=== PATIENT | male | born 1955 | race Caucasian/White ===

== ENCOUNTER → 2020-10-06 09:02 | Outpatient (BNVA) | payer MEDICARE, MEDICAID, SELFPAY | PROVIDERS: PCP Internal Medicine Hematology & Oncology; Visit Provider Orthopaedic Surgery | DX: M75.101 Unspecified rotator cuff tear or rupture of right shoulder, not specified as traumatic (principal); M12.811 Other specific arthropathies, not elsewhere classified, right shoulder | CPT/HCPCS: 20610; 99202; J1040 ==

== ENCOUNTER 2020-11-22 09:11 | Day surgery (SDC) | payer MEDICARE, MEDICAID, SELFPAY ==
[2020-11-16 13:14] VITALS: BMI 21.2
--- NOTE | 2020-11-19 13:13 | MHC.SHP ---
Pre-Procedural Eval Section A The patient is an INPATIENT: No The History & Physical has been completed within 30 days and I have reviewed it.: Yes Section B Chief Complaint: Cataract Right Eye Allergies: Allergies Allergy/AdvReac Type Severity Reaction Status Date / Time No Known Allergies Allergy Verified 11/16/20 13:21 Plan Diagnosis/Plan: Unchanged I have reviewed the history and physical and performed a pertinent physical examination on my patient. No changes have occurred unless specified.
--- NOTE | 2020-11-22 11:03 | HO.ANESPROP2 ---
HPI - Anesthesia Eval Consult details Narrative: 64 yo male patient for Right cataract extraction and IOL insertion PMFSH Active Problems Active Problems: All Active Problems (Updated 11/16/20 @ 13:20 by Shante Hernandez) Rotator cuff tear arthropathy of right shoulder (Acute) Past Medical History Medical History COPD (chronic obstructive pulmonary disease) Hx of bipolar disorder Hypercholesteremia Hypertension Pre-diabetes Restless leg syndrome Vision impairment Family History Family history of problems with anesthesia: No Surgical History Surgical History H/O colonoscopy H/O rotator cuff surgery History of esophagogastroduodenoscopy (EGD) Hx of appendectomy Hx of eye surgery Hx of total knee replacement Previous back surgery History of Problems with Anesthesia: No Social History Social History (Updated 11/22/20 @ 11:10 by Libby Light) Smoking Status: Current every day smoker Cigarettes Per Day: 5 Years Smoked: 40 Smoked in Last 30 Days: Yes Use of substances other than those prescribed or required for medical reasons: No Have you been hit, kicked, punched, or otherwise hurt by someone within the past year? 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 Meds Allergies Allergy/AdvReac Type Severity Reaction Status Date / Time No Known Allergies Allergy Verified 11/16/20 13:21 Active Medications: Current Medications Generic Name Dose Route Start Last Admin Trade Name Freq PRN Reason Stop Dose Admin Cyclopentolate HCl 1 drop 11/22/20 11:00 Cyclopentolate 1 % Ophth Natasha 2 Ml Drpbtl EYE-RIGHT 11/22/20 11:11 Q5M VANDANA Sodium Chloride 500 mls @ 50 mls/hr 11/22/20 06:00 Ns IV 11/22/20 15:59 .Q10H VANDANA Lactated Ringer's 500 mls @ 50 mls/hr 11/22/20 07:15 Lr IV .Q10H VANDANA Ketorolac Tromethamine 1 drop 11/22/20 11:00 Ketorolac Tromethamine 0.5% Op 3 Ml Drops EYE-RIGHT 11/22/20 11:11 Q5M VANDANA Moxifloxacin HCl 1 drop 11/22/20 10:56 Moxifloxacin Hcl 0.5 % Oph Natasha 3 Ml Drpbtl EYE-RIGHT 11/22/20 10:57 POSTOP ONE Phenylephrine HCl 1 drop 11/22/20 11:00 Phenylephrine Hcl 2.5% Oph Natasha 2 Ml Bottle EYE-RIGHT 11/22/20 11:11 Q5M COUNTS INCLUDE 234 BEDS AT THE [facility] Povidone Iodine 1 appl 11/22/20 10:56 Povidone Iodine 5 % Ophth Soln 30 Ml Bottle EYE-RIGHT PREOP PRN Pre-Op Surgical Implant Prophy Tetracaine HCl 1 drop 11/22/20 10:56 Tetracaine Hcl/Pf 0.5% Oph Natasha 4 Ml Drops EYE-RIGHT 11/22/20 10:57 PREOP ONE Triamcinolone Acetonide 40 mg 11/22/20 10:56 Triamcinolone Acetonide 40 Mg/Ml Vial IM 11/22/20 10:57 POSTOP ONE Tropicamide 1 drop 11/22/20 11:00 Tropicamide 1 % Ophth Natasha 3 Ml Btl EYE-RIGHT 11/22/20 11:11 Q5M COUNTS INCLUDE 234 BEDS AT THE [facility] Home Medications Medication Instructions Recorded Confirmed Last Taken Type albuterol sulfate 4 mg tablet 8 mg PO BID 10/06/20 Unknown History atorvastatin 80 mg tablet 80 mg PO BEDTIME 10/06/20 11/16/20 Unknown History naproxen 500 mg tablet 500 mg PO BID 10/06/20 Unknown History quetiapine 50 mg tablet 50 mg PO DAILY 10/06/20 Unknown History albuterol sulfate 2 puff PO QID PRN 11/16/20 11/16/20 Unknown History fluticasone propion-salmeterol 2 inh INHALATION BID 11/16/20 11/16/20 Unknown History lisinopril 10 mg PO QAM 11/16/20 11/16/20 Unknown History omeprazole 20 mg PO BID 11/16/20 11/16/20 Unknown History quetiapine 100 mg PO BEDTIME 11/16/20 11/16/20 Unknown History quetiapine 400 mg PO BEDTIME 11/16/20 11/16/20 Unknown History ropinirole 0.5 mg PO BEDTIME 11/16/20 11/16/20 Unknown History tiotropium bromide [Spiriva with 1 cap INHALATION QAM 11/16/20 11/16/20 Unknown History HandiHaler] tizanidine 4 mg PO TID 11/16/20 11/16/20 Unknown History zolpidem 10 mg PO BEDTIME 11/16/20 11/16/20 Unknown History Exam Exam Date and Time: November 22, 2020 1103 Height,Weight and Vital Signs: Height 5 ft 8 in Weight 63.503 kg Vital Signs Temp Pulse Resp BP Pulse Ox 11/22/20 11:08 97.1 F 59 18 140/83 H 99 Airway Mallampati Class: II TM Dist: >3cm Neck ROM: Full Denture: Upper and Lower Heart: RRR Lungs: CTAB Assessment and Plan Assessment Anesthesia Assessment: Anesthesia Plan Discussed and Chart Reviewed Final Anesthetic Review NPO: Yes ASA Class: II Final Preanesthetic Review: No Changes in Pt Med Stat, Meds/Allgs Chart Reviewed, Consent Obtained/Reviewed and Anes Risks/Benef Reviewed Patient Risk: Low Procedure Risk: Low Assessment/Block/Sedation in SS: Assess/Block/Sedation-SS Anesthetic Plan Anesthetic Plan: MAC: Disposition: Standard PACU
[2020-11-22 11:08] VITALS: BP 140/83; PULSE 59; RESP 18; TEMP 36.2; O2SAT 99
[2020-11-22] MEDS: Tetracaine HCl/PF 0.5% Oph Sol 4 ML DROPS 1 DROP EYE-RIGHT (11:17)
[2020-11-22] MEDS: Tropicamide 1 % Ophth Sol 3 ML BTL 1 DROP EYE-RIGHT ×3 (11:18→11:26)
[2020-11-22] MEDS: Phenylephrine HCL 2.5% Oph SoL 2 ML BOTTLE 1 DROP EYE-RIGHT ×3 (11:20→11:28)
[2020-11-22] MEDS: Lactated Ringers 500 ML 50 ML IV (11:29)
--- NOTE | 2020-11-22 12:12 | HO.PNOPHT ---
Ophthalmology Procedure Procedure Date of Service: 11/22/20 Ophthalmology Viscoelastic: Guru Barrientost Dual Pack Pro Ophthalmology Lenses: TECPETTY [id number] (16) Procedure Notes: PREOPERATIVE DIAGNOSIS: Decreased visual acuity right eye secondary to cataract POSTOPERATIVE DIAGNOSIS: Same PROCEDURE: Right cataract extraction with intraocular lens insertion SURGEON: Thee Philip M.D. ANESTHESIA: Topical/MAC ESTIMATED BLOOD LOSS: None COMPLICATIONS: None After obtaining informed consent, the patient was brought to the operating room suite and placed in the supine position. After adequate sedation per anesthesia, topical drops of Tetracaine were given to the right eye. The eye was then prepped and draped in the usual sterile fashion. The operating room microscope was then positioned over the operative eye and a lid speculum placed. A paracentesis was created. Viscoelastic was then instilled into the anterior chamber. A three plane incision was then created temporally, utilizing a 2.85 mm keratome. Capsulotomy forceps were then utilized to create a circular tear capsulotomy. Hydrodissection and hydrodelineation were carried out until adequate mobilization of the nucleus occurred. Phacoemulsification was then utilized to remove the dense central nucleus followed by removal of the cortical material utilizing the automated aspiration irrigation unit. Viscoelastic was instilled into the posterior capsular bag followed by placement of a posterior chamber intraocular lens without difficulty. The residual Viscoelastic was then removed utilizing the automated IA machine. The wound was checked and found to be watertight. The patient tolerated the procedure well and the lid speculum was removed. Intracameral injection of Vigamox 0.1 mL followed by a subtenon injection of Kenalog-40 0.2 mL were administered. The patient will be seen in the a.m.
[2020-11-22 12:37] VITALS: BP 140/83; PULSE 64; RESP 13; TEMP 36.8; O2SAT 100
== END 2020-11-22 13:31 | disposition home or self-care (01) ==
PROVIDERS: PCP Internal Medicine; Visit Provider Ophthalmology
PROC: (CPT 66985; principal; 2020-11-22 12:00)
DX: H25.11 Age-related nuclear cataract, right eye (principal); H52.4 Presbyopia; J44.9 Chronic obstructive pulmonary disease, unspecified; Z79.51 Long term (current) use of inhaled steroids; Z79.899 Other long term (current) drug therapy; I10 Essential (primary) hypertension; F17.210 Nicotine dependence, cigarettes, uncomplicated; Z87.828 Personal history of other (healed) physical injury and trauma
CPT/HCPCS: 66984; J2250; J3010; J3300; V2632

== ENCOUNTER 2020-12-06 06:38 | Day surgery (SDC) | payer MEDICARE, MEDICAID, SELFPAY ==
[2020-11-16 13:31] VITALS: BMI 21.2
--- NOTE | 2020-12-01 16:29 | MHC.SHP ---
Pre-Procedural Eval Section A The patient is an INPATIENT: No The History & Physical has been completed within 30 days and I have reviewed it.: Yes Section B Chief Complaint: Cataract Left Eye Allergies: Allergies Allergy/AdvReac Type Severity Reaction Status Date / Time No Known Allergies Allergy Verified 11/16/20 13:21 Plan Diagnosis/Plan: Unchanged I have reviewed the history and physical and performed a pertinent physical examination on my patient. No changes have occurred unless specified.
--- NOTE | 2020-12-03 08:21 | P.CONAN_ITS ---
Documented by User: Chio Emily 12/03/20 08:24 HPI - Anesthesia Eval Consult details Narrative: 64yo M for Left Cataract Extraction IOL Insertion Right eye 11/22/20 Fent 50, Midaz 1 PMFSH Active Problems Active Problems: All Active Problems (Updated 11/16/20 @ 13:20 by Shante Hernandez) Rotator cuff tear arthropathy of right shoulder (Acute) Past Medical History Medical History COPD (chronic obstructive pulmonary disease) Hx of bipolar disorder Hypercholesteremia Hypertension Pre-diabetes Restless leg syndrome Vision impairment Surgical History Surgical History H/O colonoscopy H/O rotator cuff surgery History of esophagogastroduodenoscopy (EGD) Hx of appendectomy Hx of eye surgery Hx of total knee replacement Previous back surgery Social History Social History Are you a primary outdoor emergency care technician to a significant other at home: No Do you presently have visiting nurse or other home services: No Smoking Status: Current every day smoker Cigarettes Per Day: 5 Years Smoked: 40 Use of substances other than those prescribed or required for medical reasons: No Have you been hit, kicked, punched, or otherwise hurt by someone within the past year? 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 Meds Allergies Allergy/AdvReac Type Severity Reaction Status Date / Time No Known Allergies Allergy Verified 11/16/20 13:21 Home Medications Medication Instructions Recorded Confirmed Last Taken Type albuterol sulfate 4 mg tablet 8 mg PO BID 10/06/20 Unknown History atorvastatin 80 mg tablet 80 mg PO BEDTIME 10/06/20 11/16/20 Unknown History naproxen 500 mg tablet 500 mg PO BID 10/06/20 Unknown History quetiapine 50 mg tablet 50 mg PO DAILY 10/06/20 Unknown History albuterol sulfate 2 puff PO QID PRN 11/16/20 11/16/20 Unknown History fluticasone propion-salmeterol 2 inh INHALATION BID 11/16/20 11/16/20 Unknown History lisinopril 10 mg PO QAM 11/16/20 11/16/20 Unknown History omeprazole 20 mg PO BID 11/16/20 11/16/20 Unknown History quetiapine 100 mg PO BEDTIME 11/16/20 11/16/20 Unknown History quetiapine 400 mg PO BEDTIME 11/16/20 11/16/20 Unknown History ropinirole 0.5 mg PO BEDTIME 11/16/20 11/16/20 Unknown History tiotropium bromide [Spiriva with 1 cap INHALATION QAM 11/16/20 11/16/20 Unknown History HandiHaler] tizanidine 4 mg PO TID 11/16/20 11/16/20 Unknown History zolpidem 10 mg PO BEDTIME 11/16/20 11/16/20 Unknown History Exam Exam Date and Time: December 03, 2020820 Height,Weight and Vital Signs: Height 5 ft 8 in Weight 63.503 kg Assessment and Plan Assessment Anesthesia Assessment: Chart Reviewed Documented by User: Jose Warren 12/06/20 07:58 PMFSH Past Medical History Medical History COPD (chronic obstructive pulmonary disease) Hx of bipolar disorder Hypercholesteremia Hypertension Pre-diabetes Restless leg syndrome Vision impairment Surgical History Surgical History H/O colonoscopy H/O rotator cuff surgery History of esophagogastroduodenoscopy (EGD) Hx of appendectomy Hx of eye surgery Hx of total knee replacement Previous back surgery Social History Social History Are you a primary outdoor emergency care technician to a significant other at home: No Do you presently have visiting nurse or other home services: No Smoking Status: Current every day smoker Cigarettes Per Day: 5 Years Smoked: 40 Use of substances other than those prescribed or required for medical reasons: No Have you been hit, kicked, punched, or otherwise hurt by someone within the past year? 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 Meds Allergies Allergy/AdvReac Type Severity Reaction Status Date / Time No Known Allergies Allergy Verified 11/16/20 13:21 Home Medications Medication Instructions Recorded Confirmed Last Taken Type albuterol sulfate 4 mg tablet 8 mg PO BID 10/06/20 Unknown History atorvastatin 80 mg tablet 80 mg PO BEDTIME 10/06/20 11/16/20 Unknown History naproxen 500 mg tablet 500 mg PO BID 10/06/20 Unknown History quetiapine 50 mg tablet 50 mg PO DAILY 10/06/20 Unknown History albuterol sulfate 2 puff PO QID PRN 11/16/20 11/16/20 Unknown History fluticasone propion-salmeterol 2 inh INHALATION BID 11/16/20 11/16/20 Unknown History lisinopril 10 mg PO QAM 11/16/20 11/16/20 Unknown History omeprazole 20 mg PO BID 11/16/20 11/16/20 Unknown History quetiapine 100 mg PO BEDTIME 11/16/20 11/16/20 Unknown History quetiapine 400 mg PO BEDTIME 11/16/20 11/16/20 Unknown History ropinirole 0.5 mg PO BEDTIME 11/16/20 11/16/20 Unknown History tiotropium bromide [Spiriva with 1 cap INHALATION QAM 11/16/20 11/16/20 Unknown History HandiHaler] tizanidine 4 mg PO TID 11/16/20 11/16/20 Unknown History zolpidem 10 mg PO BEDTIME 11/16/20 11/16/20 Unknown History Exam Airway Mallampati Class: II TM Dist: >3cm Neck ROM: Full Loose/Missing/Broken Teeth: Yes Heart: [id number] Lungs: cta b/l Assessment and Plan Assessment Anesthesia Assessment: Anesthesia Plan Discussed, PAT Visit and Chart Reviewed Final Anesthetic Review NPO: Yes ASA Class: III Final Preanesthetic Review: No Changes in Pt Med Stat, Meds/Allgs Chart Reviewed, Consent Obtained/Reviewed and Anes Risks/Benef Reviewed Patient Risk: Low Procedure Risk: Low Assessment/Block/Sedation in SS: Assess/Block/Sedation-SS Anesthetic Plan Anesthetic Plan: MAC: and Agree w/ Assess. and Plan Disposition: Standard PACU
[2020-12-06 06:57] VITALS: BP 116/77; PULSE 64; RESP 16; TEMP 37.2; O2SAT 99
[2020-12-06] MEDS: Tetracaine HCl/PF 0.5% Oph Sol 4 ML DROPS 1 DROP EYE-LEFT (07:10)
[2020-12-06] MEDS: Tropicamide 1 % Ophth Sol 3 ML BTL 1 DROP EYE-LEFT ×3 (07:12→07:22)
[2020-12-06] MEDS: Phenylephrine HCL 2.5% Oph SoL 2 ML BOTTLE 1 DROP EYE-LEFT ×3 (07:12→07:21)
[2020-12-06] MEDS: Lactated Ringers 500 ML 50 ML IV (07:18)
--- NOTE | 2020-12-06 08:31 | HO.PNOPHT ---
Ophthalmology Procedure Procedure Date of Service: 12/06/20 Ophthalmology Viscoelastic: Healon Duet Dual Pack Pro Ophthalmology Lenses: TECPETTY [id number] (22) Procedure Notes: PREOPERATIVE DIAGNOSIS: Decreased visual acuity left eye secondary to cataract POSTOPERATIVE DIAGNOSIS: Same PROCEDURE: Left cataract extraction with intraocular lens insertion SURGEON: Thee Philip M.D. ANESTHESIA: Topical/MAC ESTIMATED BLOOD LOSS: None COMPLICATIONS: None After obtaining informed consent, the patient was brought to the operation room suite and placed in the supine position. After adequate sedation per anesthesia, topical drops of Tetracaine were given to the left eye. The eye was then prepped and draped in the usual sterile fashion. The operating room microscope was then positioned over the operative eye and a lid speculum placed. A paracentesis was created. Viscoelastic was then instilled into the anterior chamber. A three plane incision was then created temporally, utilizing a 2.85 mm keratome. Capsulotomy forceps were then utilized to create a circular tear capsulotomy. Hydrodissection and hydrodelineation were carried out until adequate mobilization of the nucleus occurred. Phacoemulsification was then utilized to remove the dense central nucleus followed by removal of the cortical material utilizing the automated aspiration irrigation unit. Viscoat elastic was instilled into the posterior capsular bag followed by placement of a posterior chamber intraocular lens without difficulty. The residual Viscoat elastic was then removed utilizing the automated IA machine. The wound was check and found to be watertight. The patient tolerated the procedure well and the lid speculum was removed. Intracameral injection of Vigamox 0.1 mL followed by a subtenon injection of Kenalog-40 0.2 mL were administered. The patient will be seen in the a.m.
[2020-12-06 08:32] VITALS: BP 131/78; PULSE 66; TEMP 36.2; O2SAT 99
== END 2020-12-06 09:30 | disposition home or self-care (01) ==
PROVIDERS: PCP Internal Medicine; Visit Provider Ophthalmology
PROC: (CPT 66985; principal; 2020-12-06 08:30)
DX: H25.12 Age-related nuclear cataract, left eye (principal); H52.4 Presbyopia; H54.61 Unqualified visual loss, right eye, normal vision left eye; H31.091 Other chorioretinal scars, right eye; Z87.828 Personal history of other (healed) physical injury and trauma; I10 Essential (primary) hypertension; J44.9 Chronic obstructive pulmonary disease, unspecified; F17.210 Nicotine dependence, cigarettes, uncomplicated; Z79.899 Other long term (current) drug therapy
CPT/HCPCS: 66984; J2250; J3010; J3300; V2632

== ENCOUNTER 2021-01-11 14:49 | Outpatient (REF) | payer MEDICARE, MEDICAID, SELFPAY ==
--- NOTE | ~2021-01-11 | XR_ITS ---
EXAMINATION: XR KNEE, LEFT XR KNEE STANDING, BILATERAL CLINICAL INFORMATION: Pain. COMPARISON: 02/24/2014 and 12/13/2012 TECHNIQUE: AP standing views of both knees and lateral view of the left knee. FINDINGS: AP standing views of both knees performed. Right knee joint spaces are maintained. No significant bony abnormality on AP view of the right knee is seen. Patient is status post left total knee arthroplasty with prosthetic components in place. No acute fracture or dislocation is evident. There is a small knee effusion. No definite prosthetic loosening is seen. XR/XR knee standing BI IMPRESSION: Small left knee effusion.
--- NOTE | ~2021-01-11 | XR_ITS ---
EXAMINATION: XR KNEE, LEFT XR KNEE STANDING, BILATERAL CLINICAL INFORMATION: Pain. COMPARISON: 02/24/2014 and 12/13/2012 TECHNIQUE: AP standing views of both knees and lateral view of the left knee. FINDINGS: AP standing views of both knees performed. Right knee joint spaces are maintained. No significant bony abnormality on AP view of the right knee is seen. Patient is status post left total knee arthroplasty with prosthetic components in place. No acute fracture or dislocation is evident. There is a small knee effusion. No definite prosthetic loosening is seen. XR/XR knee LT 2V IMPRESSION: Small left knee effusion.
== END 2021-01-11 14:50 | disposition home or self-care (01) ==
LOC: HO.HOSX 14:49
PROVIDERS: Visit Provider Orthopaedic Surgery
DX: M25.562 Pain in left knee (principal); M25.561 Pain in right knee
CPT/HCPCS: 73560; 73565

== ENCOUNTER → 2021-01-12 08:30 | Outpatient (BNVA) | payer MEDICARE, MEDICAID, SELFPAY | PROVIDERS: PCP Internal Medicine; Visit Provider Orthopaedic Surgery | DX: Z96.652 Presence of left artificial knee joint (principal) | CPT/HCPCS: 99212 ==

== ENCOUNTER 2021-01-21 07:43 | Outpatient (RCR) | payer MEDICARE, MEDICAID, SELFPAY ==
--- NOTE | 2021-01-21 09:17 | MHC.PT.EP ---
[facility] [place] Office [place] Office [place] Office [address] Dino Howard [address] [phone] F: [phone] F: [phone] F: [phone] F: [phone] Physical Therapy Plan of Care Date of Evaluation: Date of Surgery: 2003 Diagnosis: H/O LEFT TKA, PAIN LEFT KNEE Assessment: 65 YO MALE REF TO PT FOR LEFT PATELLAR PAIN- H/O LEFT TKR IN 2003. 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 OBJECTIVE FINDINGS: DECR AROM LEFT KNEE, TIGHT HS, LEFT LE WEAKNESS, (+) SCAR W LEFT MEDIAL KNEE RESTRICTION/ PF DEVIATION MED. FUNCTIONALLY, Pt LIMITED W STATIC POSITIONING, STAIR MGMT, INCR GAIT, TRANSITIONAL MVMTS, AND SQUATTING. Pt NOTES HE IS SCHED FOR NECK SURGERY 01/26/21 AND WILL NEED DEFINED CLEARANCE FOR PT FOR LEFT KNEE POST OP. Frequency and Duration: The patient will be seen 2x WK x 5 WKS Short Term Goals: DECR LEFT KNEE PAIN TO 2-3/10 IN 2 WKS Pt DEMON IMPROVED AROM-> FULL TERMINAL EXT Lt KNEE IN 2 WKS Interior Design Assistant Goals: Pt INDEP W HEP AND SELF- SX MGMT TECHN IN 5 WKS Pt RESUME REG ADLs AND IMPROVED FUNC MOB EVIDENT W IMPROVED LEFT BY AT LEAST 10 POINTS (41/80) IN 5 WKS Treatment Plan: Modalities to reduce pain, spasms and effusion. Manual therapy to restore motion and function. Therapeutic exercise to improve strength and flexibility. Neuromuscular re-education for posture and balance. Therapeutic activities to return to functional activities of daily living. Electronically signed by: Gem Gore,PT Please sign and return to therapist. Thank you for your referral.
--- NOTE | 2021-02-22 13:53 | MHC.PT.DC ---
[facility] [place] Office [place] Office [place] Office [address] Dino Howard [address] [phone] F: [phone] F: [phone] F: [phone] F: [phone] Physical Therapy Discharge Report Diagnosis: H/O LEFT TKA, PAIN LEFT KNEE Date of Surgery: 2003 Date of Evaluation: 01/21/21 Date of Discharge: 02/22/21 Treatments to Date: 1 Cancellations to Date: 0 No Shows to Date: 0 Discharge Status: Pt D/C FROM PT AT THIS TIME- HE ATTENDED PT EVAL FOR HIS KNEE PAIN, BUT SOON AFTER HAD CERVICAL SURGERY SCHEDULED. Discharge Summary: 65 YO MALE REF TO PT FOR LEFT PATELLAR PAIN- H/O LEFT TKR IN 2003. 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 OBJECTIVE FINDINGS: DECR AROM LEFT KNEE, TIGHT HS, LEFT LE WEAKNESS, (+) SCAR W LEFT MEDIAL KNEE RESTRICTION/ PF DEVIATION MED. FUNCTIONALLY, Pt LIMITED W STATIC POSITIONING, STAIR MGMT, INCR GAIT, TRANSITIONAL MVMTS, AND SQUATTING. Pt NOTES HE IS SCHED FOR NECK SURGERY 01/26/21 AND WILL NEED DEFINED CLEARANCE FOR PT FOR LEFT KNEE POST OP. Electronically signed by: Gem Gore,PT Please sign and return to therapist. Thank you for your referral.
--- NOTE | 2021-02-24 13:37 | MHC.PT.DC ---
[facility] [place] Office [place] Office [place] Office [address] Dino Howard [address] [phone] F: [phone] F: [phone] F: [phone] F: [phone] Physical Therapy Discharge Report Diagnosis: H/O LEFT TKA, PAIN LEFT KNEE Date of Surgery: 2003 Date of Evaluation: 01/21/21 Date of Discharge: 02/24/21 Treatments to Date: 1 Cancellations to Date: 0 No Shows to Date: 0 Discharge Status: Patient Elected to Stop Discharge Summary: Pt ATTENDED PT EVAL FOR LEFT KNEE PAIN 01/21/21, HOWEVER, HE WAS SCHED FOR NECK SURGERY 01/26/21 AND HAS NOT RETURNED FOR F/U PT FOR LEFT KNEE. HE IS BEING D/C AT THE CURRENT TIME. PLEASE REFER Pt TO PT FOR LEFT KNEE ONCE MEDICALLY CLEARED POST NECK SURGERY. Electronically signed by: Gem Gore,PT Please sign and return to therapist. Thank you for your referral.
== END 2021-02-24 13:38 | disposition other institution (70) ==
LOC: HO.PTCHIC 07:43
PROVIDERS: PCP Internal Medicine; Visit Provider Orthopaedic Surgery
DX: M25.562 Pain in left knee (principal); Z96.652 Presence of left artificial knee joint
CPT/HCPCS: 97110; 97140; 97162